=== PATIENT | female | born 1985 | race African-American/Black ===

== ENCOUNTER → 2018-08-10 08:34 | Outpatient (CLI) | payer MEDICAID ==
[2010-07-28 05:59] VITALS: BMI 29.5
== END | disposition home or self-care (01) ==
LOC: D.LDO 08:34
DX: O26.852 Spotting complicating pregnancy, second trimester (principal); Z3A.25 25 weeks gestation of pregnancy

== ENCOUNTER → 2018-09-18 09:47 | Outpatient (CLI) | payer MEDICAID ==
[2010-07-28 05:59] VITALS: BMI 29.5
== END | disposition home or self-care (01) ==
LOC: D.LDO 09:47
DX: O26.893 Other specified pregnancy related conditions, third trimester (principal); Z3A.30 30 weeks gestation of pregnancy

== ENCOUNTER 2018-10-31 13:00 | Inpatient (IN) | payer MEDICAID ==
[~2018-10-31] VITALS: Ht 172.7 cm; Wt 102.5 kg
[2018-10-31 15:04] LABS: APPEARANCE HAZY (CLEAR); COLOR YELLOW (YELLOW)
[2018-10-31 15:05] LABS: BILIRUBIN NEGATIVE (NEGATIVE); GLUCOSE NEGATIVE (NEGATIVE); KETONE NEGATIVE (NEGATIVE); NITRITE NEGATIVE (NEGATIVE); PROTEIN NEGATIVE (NEGATIVE)
[2018-10-31 15:06] LABS: BACTERIA FEW /hpf (NONE SEEN); EPITHELIAL CELLS 0-5 /hpf (0-5); MUCUS <1+ /lpf (NONE SEEN); RED CELLS - URINE 0-5 /hpf (0-5)
[2018-10-31 16:22] VITALS: BP 130/76; Ht 172.7 cm; Wt 102.5 kg
[2018-10-31] MEDS ORDERED: PRENAVITE1 TAB PO (16:44)
[2018-10-31 16:56] LABS: HEMATOCRIT 35.2 % (36.0-48.0); HEMOGLOBIN 11.7 g/dL (12-16); MCH 29.4 pg (26.0-34.0); MCHC 33.2 g/dL (31.0-37.0); MCV 88.4 fL (80.0-100.0); MEAN PLATELET VOLUME 9.6 fL (7.4-10.4); RBC 3.98 10x6/uL (4.00-5.40); WBC 9.4 10x3/uL (4.8-10.8)
[2018-11-01 19:18] VITALS: BP 132/62
--- NOTE | 2018-11-01 19:18 | NUR ---
PT. LYING ON BACK WITH HOB AT 30 DEGREES. PT. ABLE TO MOVE LEGS FROM SIDE TO SIDE BUT UNABLE TO LIFT. SKIN WARM AND DRY. IV INFUSIONS OFF AT THIS TIME. IV SALINE LOCK NOTED IN LT WRIST. FUNDUS FIRM U/I AND LOCHIA RUBRA SCANT. BREATH SOUNDS CLEAR AND BOWEL SOUNDS AUDIBLE. PT. DENIES ANY PAIN. VISITORS IN ROOM. BEING HELD BY VISITOR. NBN NURSE IN ROOM TO TAKE TO NBN.
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
--- NOTE | 2018-11-01 19:36 | NUR ---
ICE WATER PROVIDED TO PT.
--- NOTE | 2018-11-01 19:37 | NUR ---
MOTRIN GIVEN ORDERED FOR ROUTINE MANAGEMENT. PT. WITHOUT EPISIOTOMY. DENIES ANY PAIN AT THIS TIME.
--- NOTE | 2018-11-01 19:45 | NUR ---
LAB HERE FOR BLOOD DRAW.
[2018-11-01 19:47] LABS: HEMATOCRIT 34.4 % (36.0-48.0); HEMOGLOBIN 11.3 g/dL (12-16); MCH 29.1 pg (26.0-34.0); MCHC 32.8 g/dL (31.0-37.0); MCV 88.7 fL (80.0-100.0); MEAN PLATELET VOLUME 9.5 fL (7.4-10.4); RBC 3.88 10x6/uL (4.00-5.40); RDW 14.1 % (11.5-14.5)
[2018-11-01 19:59] LABS: WBC 15.4 10x3/uL (4.8-10.8)
[2018-11-01 20:09] VITALS: BP 120/65
[2018-11-01 20:10] LABS: ALBUMIN 2.3 g/dL (3.4-5.0); ALKALINE PHOSPHATASE 106 U/L (46-116); ALT (SGPT) 17 U/L (10-68); BILIRUBIN - TOTAL 0.34 mg/dL (0.2-1.3); CALC OSMOLALITY 272 mosm/kg (275-300); CALCIUM 7.9 mg/dL (8.5-10.1); CARBON DIOXIDE 19.7 mmol/L (21.0-32.0); CHLORIDE - SERUM 104 mmol/L (98-107); CREATININE - SERUM 0.8 mg/dL (0.6-1.3); GLUCOSE 129 mg/dL (74-106); LDH 273 U/L (81-234); POTASSIUM - SERUM 3.9 mmol/L (3.5-5.1); PROTEIN - SERUM 6.3 g/dL (6.4-8.2); SODIUM 137 mmol/L (136-145); UREA NITROGEN 5 mg/dL (7-18); URIC ACID 5.7 mg/dL (2.6-7.2); eGFR NON AFRICAN AMERICAN 87 mL/min (90-120)
--- NOTE | 2018-11-01 20:12 | NUR ---
BUCKSHOT SWAGE OPERATOR CALLED TO ACCESS TUCKS AND DERMOPLAST SPRAY FROM [facility].
[2018-11-01 20:19] LABS: CREATININE - URINE 84.8 mg/dL (30-125); PRO/CRE RATIO URINE 1.8 mg/g; PROTEIN - URINE 153.9 mg/dL (0.0-11.9)
--- NOTE | 2018-11-01 20:20 | NUR ---
OFFERED SANDWICH TRAY AND PT AGREEABLE. FUNDUS U/U EXPLAINED TO PT THAT AFTER SHE EATS THIS NURSE WOULD CHECK FUNDUS AGAIN AND MIGHT NEED TO DRAIN BLADDER BY IN AND OUT CATH. EXPLAINED TO PT THE REASON WHY TO INCLUDE UNABLE TO FEEL URGE TO VOID DUE TO EPIDURAL BLOCK. PT. REMAINS UNABLE TO LIFT LEGS AT THIS TIME. PT. AGREEABLE TO SAME AND STATES UNDERSTANDING.
--- NOTE | 2018-11-01 20:28 | NUR ---
SANDWICH TRAY, PUDDING, CHIPS AND [place] DRINK SERVED. PT. STATES THAT SHE IS EXTREMELY HUNGRY.
[2018-11-01 20:39] VITALS: BP 117/66
[2018-11-01 21:09] VITALS: BP 121/74
--- NOTE | 2018-11-01 21:10 | NUR ---
APPROXIMATELY 90 % OF SANDWICH TRAY CONSUMER. MORE NOURISHMENTS OFFERED AND PT. DECLINED. REQUESTED VISITORS TO WAIT OUT OF ROOM SO THIS NURSE COULD EVALUATE FUNDUS AND LOCHIA. VISITORS COMPLIED. FUNDUS FIRM 1/U AND BLADDER DISTENDED. PT. STILL UNABLE TO LIFT LEGS AND DOES NOT FEEL URGE TO VOID ALTHOUGH STATES SHE FEELS PRESSURE AT THE BLADDER AREA. AGAIN DISCUSSED WITH PT. IN AND OUT CATH. AND PT. AGREEABLE. PT. STATES "WELL, YOU KNOW THEY GAVE ME EXTRA EPIDURAL MEDICATION RIGHT BEFORE I DELIVERED SO THAT IS PROBABLY WHY IT IS TAKING LONGER TO GET FEELING".
--- NOTE | 2018-11-01 21:16 | NUR ---
IN AND OUT CATH PER HOSPITAL PROTOCOL. 900CC OBTAINED. FUNDUS FIRM U/2 AND MIDLINE. LOCHIA SCANT. ICE CAP REPLACED ON LABIAL/PERINEAL AREA. SLIGHT EDEMA NOTED OF LABIA. PT. TOLERATED PROCEDURE WITHOUT ANY DISCOMFORT STATED BY PT. POC EXPLAINED TO PT. TO MOVING TO CLEAN ROOM WHENEVER SHE CAN WEIGHT BEAR. PT. STATES UNDERSTANDING TO ALL.
--- NOTE | 2018-11-01 21:32 | NUR ---
DR. FRANCIS CALLED AND ASKED IF SHE HAD REVIEWED PT'S LAB RESULTS THAT SHE HAD ORDERED EARLIER. STATES THAT SHE HAS AND WILL REVIEW WITH PT. IN AM.
--- NOTE | 2018-11-01 21:50 | NUR ---
PT. EATING FOOD BROUGHT FROM OUTSIDE. NUMEROUS VISITORS AT BEDSIDE. PT. CHEERFUL. REMAINS WITHOUT PAIN.
--- NOTE | 2018-11-01 22:41 | NUR ---
INFANT TO ROOM FOR . NBN NURSE IN ROOM TO ASSIST.
--- NOTE | 2018-11-01 22:55 | NUR ---
PT. SITTING UP IN BED WITH HOB AT 90 DEGREES. HOLDING . INQUIRED IF NURSED AND PT. REPLIES THAT SHE WOULD NOT WAKE UP. ASKED PT. IF SHE DESIRED ASSISTANCE FROM NBN AND SHE RESPONDED THAT SHE DID. PT. ABLE TO LIFT RT LEG BUT LT LEG MOVES SIDE TO SIDE BUT UNABLE TO LIFT. ANASTASIA WITH NURSERY INFORMED OF NEED FOR ASSISTANCE.
--- NOTE | 2018-11-01 23:30 | NUR ---
PT. CALLED REQUESTING HELP FOR FOB PULLING SOFA IN ROOM INTO BED. THIS NURSE TO ROOM AND ASSISTED FOB. LINENS PROVIDED FOR SOFA. PT. AND FOB AGAIN REMINDED THAT SOON PT. COULD WALK, SHE WOULD BE MOVED TO CLEAN ROOM. BOTH STATE UNDERSTANDING. INFANT BEING HELD SKIN TO SKIN WITH PT. SLEEPING AT PRESENT. FUNDUS FIRM U/1 AND MIDLINE. PT. CHEERFUL AND DENIES NEEDS AT THIS TIME.
--- NOTE | 2018-11-02 00:55 | NUR ---
INTO ROOM FOR ASSESSMENT. PT. AND FOB SWADDLING INFANT. PT. RELATES THAT RT LEGS "FEELS NORMAL BUT LT LEG STILL WITH NUMBNESS". ASKED PT. TO PUT FEET AGAINST BED AND TRY TO LIFT BUTTOCKS OFF BED. PT. ATTEMPTED AND STATED THAT LT LEG "STILL DOESN'T WORK WELL" AND IS UNABLE TO LIFT BUTTOCKS OFF BED. EXPLAINED THAT WHEN SHE CAN GET UP AND STAND THAT WE COULD CHANGE ROOMS. PT. STATES UNDERSTANDING. PT. GOWN CHANGED. FUNDUS FIRM U/1 AND MIDLINE. LOCHIA RUBRA SCANT. ICE CAP REPLACED AND PLACED ON LABIAS AND PERINEAL AREA. LESS LABIAL EDEMA NOTED THAN EARLIER IN SHIFT. PT. DENIES ANY NEEDS AT THIS TIME.
[2018-11-02 00:59] VITALS: BP 123/58
--- NOTE | 2018-11-02 01:50 | NUR ---
PT. CALLED THIS NURSE TO ROOM. STATES SHE FEELS URGENCY TO VOID. PT. ALREADY STARTING TO GET OUT OF BED. INFORMED PT. WE NEED TO GET EPIDURAL CATH. OUT OF BACK AND ALSO MAKE SURE THAT HER LT LEG WILL SUPPORT HER. EPIDURAL CATH. DISCONTINUED WITH BLACK TIP NOTED. EPIDURAL PUMP WAS OFF AT TIME THIS NURSE STARTED SHIFT AT 1845. PT. STATES THAT SHE CAN'T WAIT TO VOID AND ASKED FOR BEDPAN. VOIDED APPROX. 250CC ON BEDPAN. GOWN CHANGED AND CAITLIN PADS AND PANTIES PLACED ON PT . ASSISTED PT. TO SOFA UNTIL WHEELCHAIR CAN BE SECURED FOR TRANSFER TO CLEAN ROOM. PT. DOES NOT HAVE GOOD CONTROL OF LT. LEG WHICH CREATES UNSTEADY GAIT. IV SALINE LOCK REMOVED WITH INTACT CATH. TIP NOTED.
--- NOTE | 2018-11-02 02:10 | NUR ---
PT. ASSISTED INTO WHEELCHAIR AND TRANSPORTED TO 1278. ASSISTED INTO BED. INSTRUCTED PT. THAT SHE MUST CALL FOR HELP THE NEXT TIME THAT SHE ATTEMPT TO GO TO THE BATHROOM AND BEFORE ANY FURTHER AMBULATION DUE TO FACT SHE DOES NOT HAVE GOOD CONTROL OF LEFT FOOT AND LEG. PT. AGREEABLE AND STATES UNDERSTANDING. SIDE RAILS UP X 2. CALL LIGHT WITHIN REACH. PT. AND FOB MADE AWARE OF WHERE ROOM TEMP. CONTROL LOCATED. PT. SUPPLIED WITH WATER AND REQUESTED SHERBERT WHICH WAS PROVIDED. INFANT REMAIN WITH PT. WHICH IS HOLDING HER AND TALKING TO HER AT PRESENT. FOB IN ROOM WITH PT. INFORMED PT. ON USE OF DERMOPLAST AND TUCKS WHICH WERE PLACED IN THE ROOM. INFORMED PT. THAT SHE WOULD BE ASSISTED IN THEIR USE THE NEXT TIME SHE GOES TO BATHROOM. PT. AGREEABLE AND STATES UNDERSTANDING. CAITLIN BOTTLE AND BETADINE ALSO PLACED IN BATHROOM. NEW ICE CAP GIVEN TO PT.
--- NOTE | 2018-11-02 04:02 | NUR ---
PT. ASLEEP AND AWAKENED FOR MEDS.
--- NOTE | 2018-11-02 04:51 | NUR ---
LYING ON BACK WITH EYES CLOSED. RESPIRATIONS UNLABORED.
--- NOTE | 2018-11-02 05:08 | NUR ---
INFANT TO PT. FOR FEEDING PER NBN STAFF.
--- NOTE | 2018-11-02 05:33 | NUR ---
LYING IN BED WITH HOB AT 30 WITH INFANT SKIN TO SKIN. PT. LYING WITH EYES CLOSED. NBN ENROUTE TO CHECK ON MOM AND BABY.
[2018-11-02 07:40] VITALS: BP 107/60
--- NOTE | 2018-11-02 07:40 | NUR ---
ASSUMED CARE OF THIS PATIENT AT THIS TIME. SHIFT ASSESSMENT COMPLETED. DENIES NEEDING ANYTHING AT THIS TIME. INFANT LAYING ON MOTHER'S CHEST. VISITOR X 1 IN ROOM. SIDE RAILS UP X 2, CALL LIGHT IN REACH. DENIES PAIN. TO CALL IF ANYTHING IS NEEDED.
--- NOTE | 2018-11-02 10:09 | NUR ---
SITTING UP IN BED HOLDING IN ARMS. SAYS HER TOES ARE FEELING BETTER. SAYS SHE HAS A LITTLE "HEAVYNESS IN FEET BUT I CAN WALK". SCHEDULED TYLENOL GIVEN. 01/21 INTERMITTENT CRAMPING. NO REQUESTS. VISITOR X 1 IN ROOM. SIDERAILS UP X 2, CALL LIGHT IN REACH. TO CALL IF ANYTHING IS NEEDED.
--- NOTE | 2018-11-02 11:11 | NUR ---
SITTING UP IN BED TALKING TO VISITOR. DENIES NEEDING ANYTHING AT THIS TIME. TO CALL WHEN READY TO SHOWER. WILL DO SITZ BATH BEFORE SHOWER AND THEN CHANGE LINENS. VERBALIZED UNDERSTANDING. NON-SMOKER GBS POS, A+, RUBELLA IMMUNE.
--- NOTE | 2018-11-02 12:02 | NUR ---
LAYING IN BED TALKING TO VISITORS. SAYS HER CRAMPING IS BETTER. "I DON'T REALLY NEED THAT NOW" IN REGARDS TO THE MOTRIN. DESIRES TO WAIT. ASKED FOR ICE CREAM OR SHERBERT. BOTH GIVEN TO PT. WAITING ON LUNCH TRAY. PLANS TO SHOWER AFTER LUNCH. NO ADDITONAL REQUESTS.
--- NOTE | 2018-11-02 13:21 | NUR ---
LAYING IN BED TALKING TO VISITOR. INFANT IN ROOM. ATE LUNCH. DESIRES MOTRIN NOW. 12/21 CRAMPING. NOT READY FOR SHOWER OR SITZ BATH. TO CALL WHEN READY. VERBALIZE UNDERSTANDING. SIDE RAILS UP X 2, CALL LIGHT IN REACH.
--- NOTE | 2018-11-02 14:45 | NUR ---
UP TO SHOWER. COMPLETE LINEN CHANGE DONE. FRESH WATER AND SNACKS IN ROOM. DECLINED SITZ BATH BEFORE SHOWER STATES "I WILL TAKE LATER". FOB IN ROOM WITH INFANT.
[2018-11-02 14:58] VITALS: BP 131/68
--- NOTE | 2018-11-02 14:59 | NUR ---
FINISHED SHOWER. DENIES PAIN. NO REQUESTS. AMBULATING IN ROOM. FOB AND INFANT REMAIN IN ROOM.
--- NOTE | 2018-11-02 16:37 | NUR ---
SITTING UP ON BED BOTTLE FEEDING INFANT. NO REQUESTS. DENIES NEEDING ANYTHING. TO CALL IF ANYTHING IS NEEDED.
--- NOTE | 2018-11-02 18:35 | NUR ---
SITTING IN BED. DESIRES TYLENOL AT THIS TIME. /10 CRAMPING "USUALLY WHEN THE BABY CRIES". NO REQUESTS. TALKING TO VISITORS. TO CALL IF ANYTHING IS NEEDED.
[2018-11-02 19:18] VITALS: BP 109/68
--- NOTE | 2018-11-02 19:18 | NUR ---
PT REC'D IN BED AT THIS TIME. DENIES PAIN. VISITORS AT THE BEDSIDE. VITAL SIGNS STABLE. LUNGS CLEAR. BS PRESENT. FUNDUS FIRM AND MIDLINE. U/2 WITH SCANT LOCHIA NOTED. NO ACUTE DISTRESS NOTED. SIDERAILS UP FOR SAFETY X2. CALL LIGHT IN EASY REACH. Jacklyn MOONEY RN
--- NOTE | 2018-11-02 21:33 | NUR ---
PT MEDICATED AT THIS TIME WITH MOTRIN AND MILK OF MAGNESIA PER MD ORDER. NO DISTRESS NOTED AT THIS TIME. SIDERAILS UP FOR SAFETY X2 CALL LIGHT IN EASY REACH.
--- NOTE | 2018-11-02 22:30 | NUR ---
PT SITTING ON SIDE OF BED AT THIS TIME. DENIES NEEDS AT THIS TIME. PAIN LEVEL OF 0. WILL CONTINUE TO MONITOR THIS SHIFT.
--- NOTE | 2018-11-03 00:15 | NUR ---
medicated for pain level of 2 with scheduled tylenol. will monitor pain this shift. no acute distress.
--- NOTE | 2018-11-03 02:39 | NUR ---
PT RESTING COMFORTABLY AT THIST DELL WITHOUT COMPLAINTS. NO NEEDS VOICED AT THIS TIME. SIDERAIL SP X2 FOR SAFETY. CALL ADRIANNA KAY EASY REACH. Jacklyn MOONEY RN
--- NOTE | 2018-11-03 04:30 | NUR ---
PT RESTING COMFORTABLY WITHOUT COMPLAINTS. SIDERAILS UP FOR SAFETY X2. CALL LIGHT IN PT REACH.
[2018-11-03 05:38] VITALS: BP 118/72
--- NOTE | 2018-11-03 05:40 | NUR ---
PT MEDICATED WITH SCHEDULED MOTRIN. PAIN LEVEL OF 3 AT THIS TIME. WILL CONTINUE TO MONITOR. AFEBRILE THIS AM. FUNDUS REMIANS FIRM WITH SCANT LOCHIA NOTED. SIDERAILS UP FOR SAFETY. CALL LIGHTIN EASY REACH.
[2018-11-03 07:25] LABS: BASOPHILS 0.2 % (0-2); EOSINOPHILS 1.7 % (0-7); HEMATOCRIT 33.2 % (36.0-48.0); HEMOGLOBIN 10.9 g/dL (12-16); IMMATURE GRANULOCYTES 0.3 % (0-5); LYMPHOCYTES 26.2 % (15-50); MCHC 32.8 g/dL (31.0-37.0); MCV 88.3 fL (80.0-100.0); MEAN PLATELET VOLUME 9.8 fL (7.4-10.4); MONOCYTES 6.8 % (2-11); NEUTROPHILS 64.8 % (40-80); PLATELET COUNT 216 10x3/uL (130-400); RBC 3.76 10x6/uL (4.00-5.40); RDW 14.6 % (11.5-14.5)
[2018-11-03 07:31] LABS: WBC 10.4 10x3/uL (4.8-10.8)
[2018-11-03] MEDS ORDERED: IBUPROFEN800 MG PO (07:54)
--- NOTE | 2018-11-03 08:30 | NUR ---
AM ASSESSMENT COMPLETED CHARTED. PT DENIES PAIN OR DISCOMFORT AND NO CONCERNS ABOUT BLEEDING. QUESTIONED WHEN SHE WOULD BE GETTING TO LEAVE TODAY STATES SHE HAS 3 OTHER CHILDREN AT HOME AND IS READY TO LEAVE SOON POSSIBLE. EXPLAINED THAT WOULD CONTACT NURSERY NURSE TO FIND OUT ABOUT DISCHARGE.
--- NOTE | 2018-11-03 09:15 | NUR ---
Nursery nurse notified about pt wishes to leave as soon as possible, pt to follow up with Dr Holley[facility] with pt request to discharge prior to 1800 this pm.
--- NOTE | 2018-11-03 10:30 | NUR ---
pt denies needs at this time, infant in crib at bedside. side rails up x 2 with phone and call light in reach.
--- NOTE | 2018-11-03 11:45 | NUR ---
per Nursery Dr Hdz denies early discharge, states not to be discharged before 48hours post delivery.
--- NOTE | 2018-11-03 14:19 | NUR ---
PT AMB ABOUT ROOM, STATES THAT SHE HAS SPOKEN TO NURSERY NURSE AND ALTHOUGH SHE IS FRUSTRATED ABOUT HAVING TO STAY SHE DOES UNDERSTAND. SPOUSE AT BEDSIDE HOLDING INFANT. SHE DENIES ANY NEEDS AT THIS TIME.
--- NOTE | 2018-11-03 16:30 | NUR ---
pt denies needing tylenol at this time, rates her pain at 0/10. amb about room and to nursery without complaints.
--- NOTE | 2018-11-03 17:45 | NUR ---
VERBAL AND WRITTEN DISCHARGE INSTRUCTIONS GONE OVER WITH NO QUESTIONS OR CONCERNS. PT STATES HER UNDERSTANDING FOR PAIN CONTROL AND FOLLOW UP VISITS WITH DR FRANCIS IN 2 WEEKS. WILL CALL AFTER INFANT HAS BEEN DISCHARGED.
--- NOTE | 2018-11-03 18:20 | NUR ---
PT TAKEN OUT TO CAR BY WHEELCHAIR, SECURED INTO CARRIER. HOME BY PRIVATE CARE WITH SPOUSE.
[2018-11-04 03:09] LABS: RAPID PLASMA REAGIN Non Reactive (Non Reactive)
== END 2018-11-03 18:20 | disposition home or self-care (01) | DRG 805 ==
LOC: D.LDO 13:00 → D.LD 16:15
PROVIDERS: ADMIT Obstetrics & Gynecology
PROC: 10E0XZZ Delivery of Products of Conception, External Approach (ICD-10-PCS; principal; 2018-11-01)
PROC: 0HQ9XZZ Repair Perineum Skin, External Approach (ICD-10-PCS; 2018-11-01)
DX: O42.12 Full-term premature rupture of membranes, onset of labor more than 24 hours following rupture (principal); O41.1230 Chorioamnionitis, third trimester, not applicable or unspecified; Z37.0 Single live birth; O75.3 Other infection during labor; Z3A.37 37 weeks gestation of pregnancy; O99.344 Other mental disorders complicating childbirth; O99.02 Anemia complicating childbirth; O99.824 Streptococcus B carrier state complicating childbirth; O70.0 First degree perineal laceration during delivery; O14.05 Mild to moderate pre-eclampsia, complicating the puerperium